=== PATIENT | male | born 1950 | race American Indian/Alaskan Native ===

== ENCOUNTER 2018-03-23 10:38 | Day surgery (SDC) | payer MEDICARE ==
[~2018-03-23 10:38] MED LIST: ANCEF/STERILE WATER 2 GM/20 ML IV NR
[2018-03-23] MEDS ORDERED: LACTATED RINGERS 1,000 ML IV SCH ×2 (12:00→12:54)
[2018-03-23] MEDS ORDERED: VERSED IV NR (12:00)
[2018-03-23] MEDS ORDERED: DILAUDID IV PRN (12:00)
--- NOTE | 2018-03-23 12:05 | Anesthesia Consultation ---
Anesthesia Consult and Med Hx Date of service: 03/23/18 - Airway Anesthetic Teeth Evaluation: Good (implants present. Missing molars/premolars bottom right side. Denies loose teeth.) ROM Head & Neck: Adequate Mental/Hyoid Distance: Adequate Mallampati Class: Class II Intubation Access Assessment: Probably Good - Pulmonary Exam CTA: Yes - Cardiac Exam Cardiac Exam: RRR - Pre-Operative Health Status ASA Pre-Surgery Classification: ASA3 Proposed Anesthetic Plan: General - Pulmonary Hx Smoking: No Hx Respiratory Symptoms: No SOB: No Hx Sleep Apnea: No (SHEMAR PRE SCREEN HIGH RISK.) - Cardiovascular System Hx Hypertension: Yes (X 30 YRS) Hx Coronary Artery Disease: No Hx Heart Attack/AMI: No Hx Peripheral Vascular Disease: Yes (LEGS) - Central Nervous System CVA: No Hx Back Pain: Yes (DAVIS SCIATIC PAIN) - Gastrointestinal Hx Ulcer: Yes - Endocrine Hx Renal Disease: No Hx Liver Disease: No Hx Insulin Dependent Diabetes: Yes (Took 22units last night. No insulin today.) Hx Thyroid Disease: No - Hematic Hx Anemia: Yes - Other Systems Hx Cancer: No Hx Obesity: Yes - Additional Comments Anesthesia Medical History Comments: Pre-op cardiology eval on chart. Per cardiology note: recent EKG unremarkable. On plavix for "blood clot in eye" 15yrs ago. Has been held x6 days per cardiology recommendations.
--- NOTE | 2018-03-23 12:05 | Anesthesia Day of Surgery ---
Anesthesia Day of Surgery - Day of Surgery Patient Examined: Yes Patient H&P Reviewed: Yes Patient is NPO: Yes Cardiac Clearance: Yes
[2018-03-23] MEDS ORDERED: NACL 0.9% IR ONE (13:37)
--- NOTE | 2018-03-23 13:56 | Short Stay Summary ---
Short Stay Documentation Date of service: 03/23/18 - History H&P: obtained from office - Allergies and Medications Current Medications: Allergies almond Allergy (Verified 03/11/18 11:37) Itching aspirin Allergy (Verified 03/11/18 11:37) Swelling shellfish derived Allergy (Verified 03/11/18 11:37) Swelling MSG Adverse Reaction (Uncoded 03/11/18 11:37) Headache Home Medications Medication Instructions Recorded Confirmed Last Taken Type Clopidogrel Bisulfate [Plavix] 75 mg PO DAILY 03/11/18 03/23/18 03/19/18 09:00 History AtorvaSTATin [Lipitor] 20 mg PO QHS 03/21/18 03/23/18 03/22/18 21:00 History Doxazosin Mesylate [Cardura] 2 mg PO DAILY 03/21/18 03/23/18 03/22/18 09:00 History Empagliflozin [Jardiance] 25 mg PO DAILY 03/21/18 03/23/18 03/22/18 09:00 History Eplerenone [Inspra] 50 mg PO BID 03/21/18 03/23/18 03/22/18 17:00 History Insulin Glargine [Lantus] 20 units SQ QHS 03/21/18 03/21/18 Unknown History Insulin NPH Human Isophane 1 unit SUB-Q DAILY 03/21/18 03/21/18 Unknown History [Novolin N] Lisinopril [Zestril] 40 mg PO DAILY 03/21/18 03/23/18 03/23/18 07:00 History Propranolol [Inderal] 80 mg PO DAILY 03/21/18 03/23/18 03/22/18 History Sildenafil Citrate [Viagra] 25 mg PO PRN PRN 03/21/18 03/21/18 Unknown History amLODIPine [Norvasc] 10 mg PO DAILY 03/21/18 03/23/18 03/23/18 07:00 History hydrALAZINE [Apresoline TAB] 100 mg PO TID 03/21/18 03/23/18 03/22/18 17:00 History Active Medications Cefazolin Sodium (Ancef/Sterile Water 2 Gm/20 Ml) 2 gm IV PREOP NR Stop: 03/23/18 23:59 Lactated Ringer's (Lactated Ringers) 1,000 mls @ 100 mls/hr IV DIRECT MARCELLE Lactated Ringer's (Lactated Ringers) 1,000 mls @ 100 mls/hr IV DIRECT MARCELLE Last Admin: 03/23/18 12:10 Dose: 100 mls/hr Midazolam HCl (Versed) 2 mg IV PREOP NR Stop: 03/23/18 23:59 Last Admin: 03/23/18 13:03 Dose: 2 mg - Brief post op/procedure progress note Date of procedure: 03/23/18 Pre-op diagnosis: rt hydrocele Post-op diagnosis: same Procedure: hydrocelectomy with ron drain Anesthesia: ETTA Surgeon: CLOVER CROOKS Estimated blood loss: minimal Pathology: list (sac) Specimen disposition: to lab Condition: stable - Hospital course Hospital course: norco on chart - Disposition Condition at discharge: Stable Disposition: DC-01 TO HOME OR SELFCARE Short Stay Discharge Plan Follow up with: CLOVER RUDOLPH SR, MD [Primary Care Provider] - 7 Days
[2018-03-23] MEDS: DILAUDID IV PRN ×2 (14:34→14:47)
[2018-03-23] MEDS ORDERED: DILAUDID ONE (14:37)
--- NOTE | 2018-03-23 14:57 | Operative Report ---
PREOPERATIVE DIAGNOSIS: Right hydrocele. POSTOPERATIVE DIAGNOSIS: Right hydrocele. PROCEDURE: Right hydrocelectomy with [place] drain. SURGEON: Brennan Salamanca M.D. ANESTHESIA: General. ESTIMATED BLOOD LOSS: Minimal. FLUIDS: Crystalloid. COMPLICATIONS: No complications. INDICATIONS: This 68-year-old gentleman is seen in the office with a scrotal mass. Ultrasound was consistent with a right hydrocele. Discussed options. The patient agreed to proceed with surgical intervention. DESCRIPTION OF PROCEDURE: The patient was taken to the operative suite, placed in a supine position. After adequate general anesthesia, he was prepped and draped in a sterile fashion. Median raphe incision was made. Sharp dissection was taken down to the tunica vaginalis, which was opened. Serosanguineous fluid was evacuated without difficulty. Testicle appeared viable. No abnormalities. Hydrocele sac was removed. A 2-0 chromic whipstitch was placed without difficulty. Small skin incision was made. Half inch [place] drain was placed and tied into the skin with 2-0 chromic in an interrupted fashion. Dartos layer was closed with 2-0 Vicryl in a running fashion. Skin was closed with 2-0 chromic in an interrupted fashion. Collodion was placed on the skin. Fluffs and mesh pants were placed. The patient tolerated the procedure well and was extubated and taken to recovery room. He will go home on [place] and follow up in the office for removal of the [place]. JOB# [id number] Koko/NANCY
[2018-03-23 15:27] VITALS: BP 142/84
--- NOTE | 2018-03-23 16:57 | Post Anesthesia Evaluation ---
- Post Anesthesia Evaluation Patient Participated: Yes Airway Patent: Yes Stable Respiratory Function: Yes Nausea/Vomiting: No Temp > 96.8F: Yes Pain Manageable: Yes Adequeate Hydration: Yes Anesthesia Complications: No
== END 2018-03-23 15:24 | disposition home or self-care (01) ==
LOC: OR 10:38
PROVIDERS: ATTEND Urology
DX: N43.3 Hydrocele, unspecified (principal); E11.9 Type 2 diabetes mellitus without complications; I10 Essential (primary) hypertension; E78.00 Pure hypercholesterolemia, unspecified; G47.33 Obstructive sleep apnea (adult) (pediatric); E66.9 Obesity, unspecified; Z68.31 Body mass index [BMI] 31.0-31.9, adult; Z86.2 Personal history of diseases of the blood and blood-forming organs and certain disorders involving the immune mechanism; Z88.8 Allergy status to other drugs, medicaments and biological substances; Z88.6 Allergy status to analgesic agent; Z91.013 Allergy to seafood; Z79.4 Long term (current) use of insulin; Z79.899 Other long term (current) drug therapy
CPT/HCPCS: 55040; 82962; 88302; J0690; J1170; J2250; J7120